=== PATIENT | female | born 1975 | race African-American/Black ===

== ENCOUNTER 2018-11-24 09:31 | Emergency (ER) | payer OTHER ==
[~2018-11-24] VITALS: Wt 70.0 kg
[~2018-11-24 09:31] MED LIST: CIPR500T4 PO
[2018-11-24 09:33] VITALS: BP 110/79; PULSE 99; RESP 18
== END 2018-11-24 10:30 | disposition home or self-care (01) ==
LOC: FTE 09:31
DX: N39.0 Urinary tract infection, site not specified (principal)
CPT/HCPCS: 81003; 81025; Z7502; 99283